=== PATIENT | male | born 1990 | race Caucasian/White ===

== ENCOUNTER 2019-03-20 10:42 | Emergency (ER) | payer OTHER ==
[2019-03-20 11:09] VITALS: BP 132/95
--- NOTE | 2019-03-20 11:48 | EDM.PDOC ---
ED HPI GENERAL MEDICAL PROBLEM - General Chief Complaint: General Stated Complaint: KIDNEY PAIN AND HEART RACING Time Seen by Provider: 03/20/19 11:21 Source of Information: Reports: Patient History Limitations: Reports: No Limitations - History of Present Illness INITIAL COMMENTS - FREE TEXT/NARRATIVE: Patient is a 28 year old male who presents to the E.D. complaining of body aches , stiff neck, bilateral flank pain, and intermittent sensation of heart racing. THis has been going on for the past two to three weeks. He has been evaluated by PCP x 2 with lyme and west nile testing which came back negative. Patient was sent to the E.D. by PCP for further evaluation. Bilateral Flank Pain Score (Numeric/FACES): 3 - Related Data Allergies Allergy/AdvReac Type Severity Reaction Status Date / Time No Known Allergies Allergy Verified 03/20/19 11:09 Home Meds: Home Meds Doxycycline [Vibramycin] 100 mg PO DAILY 03/20/19 [History] Past Medical History - Past Health History Medical/Surgical History: Denies Medical/Surgical History Social & Family History - Tobacco Use Smoking Status *Q: Never Smoker ED ROS GENERAL - Review of Systems Review Of Systems: See Below Constitutional: Reports: Fever, Chills, Malaise, Fatigue. Denies: Decreased Appetite HEENT: Denies: Ear Pain, Rhinitis, Sinus Problem, Throat Pain, Throat Swelling Respiratory: Reports: Shortness of Breath. Denies: Pleuritic Chest Pain, Cough , Sputum, Hemoptysis Cardiovascular: Reports: Palpitations. Denies: Chest Pain, Dyspnea on Exertion GI/Abdominal: Reports: Nausea. Denies: Abdominal Pain, Black Stool, Bloody Stool, Constipation, Diarrhea, Vomiting : Denies: Dysuria Musculoskeletal: Reports: Neck Pain Skin: Denies: Rash Neurological: Reports: Numbness, Tingling. Denies: Dizziness, Headache, Difficulty Walking Psychiatric: Denies: Anxiety ED EXAM, GENERAL - Physical Exam Exam: See Below Exam Limited By: No Limitations General Appearance: Alert, WD/WN, No Apparent Distress Eye Exam: Bilateral Eye: EOMI, Nystagmus (none noted), PERRL Ears: Hearing Grossly Normal Nose: Normal Inspection, Normal Mucosa, No Blood Throat/Mouth: Normal Inspection, Normal Oropharynx, Normal Voice, No Airway Compromise Head: Atraumatic, Normocephalic Neck: Normal Inspection, Supple, Non-Tender, Full Range of Motion, Other ( Complains of slight ache to his neck to out of 10. Unable to reproduce on exam.) Respiratory/Chest: No Respiratory Distress, Lungs Clear, Normal Breath Sounds, No Accessory Muscle Use, Chest Non-Tender Cardiovascular: Normal Peripheral Pulses, Regular Rate, Rhythm, No Murmur Peripheral Pulses: 2+: Radial (L), Radial (R) GI/Abdominal: Normal Bowel Sounds, Soft, Non-Tender, No Organomegaly, No Distention Back Exam: Normal Inspection, Full Range of Motion, CVA Tenderness (L) (Mild), CVA Tenderness (R) (Mild) Extremities: Normal Inspection, Normal Range of Motion, Non-Tender, Normal Capillary Refill Neurological: Alert, Oriented, CN II-XII Intact, Normal Cognition, No Motor/ Sensory Deficits Psychiatric: Normal Affect, Normal Mood Skin Exam: Warm, Dry, Intact, Normal Color Course - Vital Signs Last Recorded V/S: Last Vital Signs Temp 97.9 F 03/20/19 11:06 Pulse 68 03/20/19 11:06 Resp 16 03/20/19 11:06 BP 132/95 H 03/20/19 11:06 Pulse Ox 98 03/20/19 11:06 - Orders/Labs/Meds Labs: Laboratory Tests 03/20/19 03/20/19 03/20/19 Range/Units 11:57 11:57 11:57 WBC 5.99 (4.23-9.07) K/mm3 RBC 4.83 (4.63-6.08) M/mm3 Hgb 14.8 (13.7-17.5) gm/L Hct 43.5 (40.1-51.0) % MCV 90.1 (79.0-92.2) fl MCH 30.6 (25.7-32.2) pg MCHC 34.0 (32.2-35.5) g/dl RDW Std Deviation 42.2 (35.1-43.9) fL Plt Count 206 (163-337) K/mm3 MPV 8.8 L (9.4-12.3) fl Neutrophils % (Manual) 73 H (40-60) % Band Neutrophils % 1 (0-10) % Lymphocytes % (Manual) 22 (20-40) % Atypical Lymphs % 0 % Immat Monocytes % (Man) 0 Monocytes % (Manual) 4 (2-10) % Eosinophils % (Manual) 0 L (0.8-7.0) % Basophils % (Manual) 0 L (0.2-1.2) Metamyelocytes % 0 Myelocytes % 0 Promyelocytes % 0 Blast Cells % 0 Plasma Cell % (Manual) 0 Nucleated RBCs 0.0 % Platelet Estimate Adequate RBC Morph Comment Normal ESR 14 (0-15) mm/hr Sodium 140 (136-145) mEq/L Potassium 4.4 (3.5-5.1) mEq/L Chloride 103 (98-107) mEq/L Carbon Dioxide 31 (21-32) mEq/L Anion Gap 10.4 (5-15) BUN 9 (7-18) mg/dL Creatinine 1.0 (0.7-1.3) mg/dL Est Cr Clr Drug Dosing 118.56 mL/min Estimated GFR (MDRD) > 60 (>60) mL/min BUN/Creatinine Ratio 9.0 L (14-18) Glucose 99 (74-106) mg/dL Lactic Acid (0.4-2.0) mmol/L Calcium 8.6 (8.5-10.1) mg/dL Total Bilirubin 1.2 H (0.2-1.0) mg/dL AST 76 H (15-37) U/L ALT 87 H (16-63) U/L Alkaline Phosphatase 82 (46-116) U/L C-Reactive Protein 1.7 H* (<1.0) mg/dL Total Protein 7.6 (6.4-8.2) g/dl Albumin 3.8 (3.4-5.0) g/dl Globulin 3.8 gm/dL Albumin/Globulin Ratio 1.0 (1-2) Lipase 74 (73-393) U/L Urine Color (Yellow) Urine Appearance (Clear) Urine pH (5.0-8.0) Ur Specific [place] (1.005-1.030) Urine Protein (Negative) Urine Glucose (UA) (Negative) Urine Ketones (Negative) Urine Occult Blood (Negative) Urine Nitrite (Negative) Urine Bilirubin (Negative) Urine Urobilinogen (0.2-1.0) Ur Leukocyte Esterase (Negative) Urine RBC (0-5) /hpf Urine WBC (0-5) /hpf Ur Squamous Epith Cells (0-5) /hpf Urine Bacteria (FEW) /hpf Urine Mucus (FEW) /hpf Monoscreen (NEGATIVE) 03/20/19 03/20/19 03/20/19 Range/Units 11:57 12:37 13:03 WBC (4.23-9.07) K/mm3 RBC (4.63-6.08) M/mm3 Hgb (13.7-17.5) gm/L Hct (40.1-51.0) % MCV (79.0-92.2) fl MCH (25.7-32.2) pg MCHC (32.2-35.5) g/dl RDW Std Deviation (35.1-43.9) fL Plt Count (163-337) K/mm3 MPV (9.4-12.3) fl Neutrophils % (Manual) (40-60) % Band Neutrophils % (0-10) % Lymphocytes % (Manual) (20-40) % Atypical Lymphs % % Immat Monocytes % (Man) Monocytes % (Manual) (2-10) % Eosinophils % (Manual) (0.8-7.0) % Basophils % (Manual) (0.2-1.2) Metamyelocytes % Myelocytes % Promyelocytes % Blast Cells % Plasma Cell % (Manual) Nucleated RBCs % Platelet Estimate RBC Morph Comment ESR (0-15) mm/hr Sodium (136-145) mEq/L Potassium (3.5-5.1) mEq/L Chloride (98-107) mEq/L Carbon Dioxide (21-32) mEq/L Anion Gap (5-15) BUN (7-18) mg/dL Creatinine (0.7-1.3) mg/dL Est Cr Clr Drug Dosing mL/min Estimated GFR (MDRD) (>60) mL/min BUN/Creatinine Ratio (14-18) Glucose (74-106) mg/dL Lactic Acid 1.2 (0.4-2.0) mmol/L Calcium (8.5-10.1) mg/dL Total Bilirubin (0.2-1.0) mg/dL AST (15-37) U/L ALT (16-63) U/L Alkaline Phosphatase (46-116) U/L C-Reactive Protein (<1.0) mg/dL Total Protein (6.4-8.2) g/dl Albumin (3.4-5.0) g/dl Globulin gm/dL Albumin/Globulin Ratio (1-2) Lipase (73-393) U/L Urine Color Yellow (Yellow) Urine Appearance Clear (Clear) Urine pH 6.5 (5.0-8.0) Ur Specific [place] 1.015 (1.005-1.030) Urine Protein Negative (Negative) Urine Glucose (UA) Negative (Negative) Urine Ketones Negative (Negative) Urine Occult Blood Negative (Negative) Urine Nitrite Negative (Negative) Urine Bilirubin Negative (Negative) Urine Urobilinogen 0.2 (0.2-1.0) Ur Leukocyte Esterase Negative (Negative) Urine RBC 0-5 (0-5) /hpf Urine WBC Not seen (0-5) /hpf Ur Squamous Epith Cells 0-5 (0-5) /hpf Urine Bacteria Rare (FEW) /hpf Urine Mucus Rare (FEW) /hpf Monoscreen Negative (NEGATIVE) Meds: Medications Discontinued Medications Generic Name Dose Route Start Last Admin Trade Name Chinedu PRN Reason Stop Dose Admin Sodium Chloride 1,000 mls @ 999 mls/hr 03/20/19 11:49 03/20/19 12:03 Normal Saline IV 03/20/19 12:49 999 mls/hr ONETIME ONE Administration Sodium Chloride 10 ml 03/20/19 11:49 03/20/19 12:03 Saline Flush FLUSH 10 ml ASDIRECTED PRN Administration Keep Vein Open - Re-Assessments/Exams Free Text/Narrative Re-Assessment/Exam: On exam there is no significant findings. Patient has only mild CVA tenderness bilaterally. Vital signs are stable. Two to three week history of recurring fevers in the morning at approx 3 a.m. He has mild neck stiffness on exam with no decrease in AROM. He has been mildly sob at times with no cough. He denies URI like symptoms. No rash noted. No recent Tick and or mosquito bites. He was checked for west nile and or lyme disease which came back negative. He was referred to the E.D. for further workup. States the fevers have been as high as 102F. Has been using tylenol and ibuprofen for pain and fever with resolution. Today while working felt as if his heart was racing and when he felt mildly SOB. States he spent 1 wk with a friend. Denies tick bite or mosquito bites. States he experienced some mildly n/t to his arms/legs and lips that resolved with slowing his respiratory rate. Denies V[place]LE[place]AS, vision changes, sore throat, dysuria, abdominal pain, diarrhea, blood stool, rash, and or any additional complaints. Denies any recent sick exposures. He currently offers no additional complaints. We'll go ahead and get some labs obtained. This will include: CBC, chem 14, CRP , blood cultures 2, ESR, UA, and also chest x-ray will be obtained with intermittent cough. IV will be established with NS 1 liter wide open. MONO spot ordered as well. Review previous lab work 03/19/2019: CBC was essentially normal, UA trace ketones otherwise negative. Chem-8 indicated normal glucose, creatinine 1.0, potassium sodium normal, CO2 30, AG of 7.2. LFTs are slightly elevated 82 and 73. West Nile was negative. Lyme Ab 0.41 WNL. Chest x-ray impression: Reviewed with Dr. Lynn with no acute findings noted. Final interpretations pending. Labs reviewed: CBC essentially normal. CMP was essentially normal minus AST of 76 and ALT of 87. Lactic acid 1.2. CRP 1.7. Lipase 74. UA was negative. Monoscreen was negative. Patient denies any history of hepatitis C, IV drug use , and/or congestion about a questional food. Discussed patient with Dr. Lynn. Agrees mostly likely cause of recent complaint is viral in etiology. I will have patient follow up with a primary care provider over at [facility] or [facility] in the next 5 days for reevaluation. Return precautions were discussed with the patient. Patient had no further questions or concerns and agreed with plan. Departure - Departure Time of Disposition: 14:34 Disposition: Home, Self-Care 01 Condition: Good Clinical Impression: Fever due to virus, Elevated LFTs - Discharge Information Instructions: Liver Function Tests Referrals: Jordyn Claudio NP [Primary Care Provider] - Forms: ED Department Discharge Additional Instructions: As discussed chest x-ray, blood work, UA, and monoscreen revealed no concerning findings minus elevated liver enzymes and slightly elevated CRP. I suspect all symptoms are associated with a viral infection that is run its course. Please keep a detailed log when these symptoms are occurring, how long, and what makes them better. I recommend following up with a provider over at [facility] or [facility] for further evaluation in the next 5 days. Please push the fluids. Ensure adequate rest. Return back to the ED if you develop any new or worsening symptoms as discussed.
[2019-03-20] MEDS ORDERED: Sodium Chloride 0.9% 1,000 ML IV ONE (11:49)
[2019-03-20] MEDS ORDERED: Sodium Chloride 0.9% 10 ML Syringe FLUSH PRN (11:49)
--- NOTE | 2019-03-20 13:50 | CR ---
Chest: Frontal view of the chest was obtained. Comparison: No prior chest x-ray. Heart size and mediastinum are normal. Lungs are clear. Bony structures are grossly intact. Impression: 1. Nothing acute is seen on portable chest x-ray. Diagnostic code #1
== END 2019-03-20 15:10 | disposition home or self-care (01) ==
LOC: JD.ED 10:42
DX: R50.9 Fever, unspecified (principal); B97.89 Other viral agents as the cause of diseases classified elsewhere; R79.89 Other specified abnormal findings of blood chemistry
CPT/HCPCS: 36415; 71045; 80053; 81001; 83605; 83690; 85007; 85027; 85652; 86140; 86308; 87040; 96360; 99284; J7040